=== PATIENT | female | born 1960 | race Caucasian/White ===

== ENCOUNTER 2017-11-24 09:20 | Day surgery (SDC) | payer OTHER ==
[~2017-11-24 09:20] MED LIST: LIDOCAINE HCL 1% MPF SOL ONE; PROPOFOL 500 MG/50 ML EMU IV ONE
[2017-11-24] MEDS ORDERED: PROPOFOL 10 MG/ML EMU IV ONE ×2 (11:17)
[2017-11-24 11:31] VITALS: TEMP 97.4
[2017-11-24 12:00] VITALS: RESP 20; O2SAT 99
[2017-11-24 12:12] VITALS: BP 165/90; PULSE 69
== END 2017-11-24 12:19 | disposition home or self-care (01) | DRG 951 ==
LOC: SURG 09:20
PROVIDERS: ATTEND Internal Medicine Gastroenterology
DX: Z12.11 Encounter for screening for malignant neoplasm of colon (principal); D12.1 Benign neoplasm of appendix; K92.1 Melena; K57.30 Diverticulosis of large intestine without perforation or abscess without bleeding; Z86.010 Personal history of colon polyps; K64.8 Other hemorrhoids; K64.4 Residual hemorrhoidal skin tags; K63.5 Polyp of colon; D12.2 Benign neoplasm of ascending colon; D12.5 Benign neoplasm of sigmoid colon; D12.3 Benign neoplasm of transverse colon
CPT/HCPCS: 99001; J2001; J2704

== ENCOUNTER 2019-02-09 09:08 | Day surgery (SDC) | payer OTHER ==
[~2019-02-09 09:08] MED LIST changes: +LIDOCAINE HCL 1% MPF 30 SOL ONE; -LIDOCAINE HCL 1% MPF SOL ONE
[2019-02-09 10:34] VITALS: BP 150/82; PULSE 68; RESP 18; TEMP 96.9; O2SAT 100
== END 2019-02-09 10:51 | disposition home or self-care (01) | DRG 951 ==
LOC: SURG 09:08
PROVIDERS: ATTEND Surgery
DX: Z12.11 Encounter for screening for malignant neoplasm of colon (principal); K57.32 Diverticulitis of large intestine without perforation or abscess without bleeding; Z86.010 Personal history of colon polyps
CPT/HCPCS: J2001; J2704